=== PATIENT | female | born 1990 | race Hispanic/Latino ===

== ENCOUNTER 2025-01-28 12:22 | Outpatient (CLI) | payer OTHER, SELFPAY ==
--- NOTE | ~2025-01-28 | XR_ITS ---
Examination: XR wrist LT 2V Clinical History: Pain in lt wrist Comparison: None Technique: 2 views left wrist Findings/impression: 1. No fracture or dislocation on 2 view series. Reviewed, dictated and finalized at location [facility]. [facility]
== END 2025-01-28 12:23 | disposition home or self-care (01) ==
LOC: ANHIMG 12:24
PROVIDERS: PCP Physician Assistant; Visit Provider Physician Assistant
DX: M25.532 Pain in left wrist (principal)
CPT/HCPCS: 73100